=== PATIENT | male | born 1995 | race Caucasian/White ===

== ENCOUNTER 2019-02-09 22:07 | Emergency (ER) | payer OTHER ==
[~2019-02-09] VITALS: Ht 172.7 cm; Wt 113.6 kg
[2019-02-09 22:07] VITALS: BP 154/82
[2019-02-09] MEDS ORDERED: DOXY-350 PO (22:23)
== END 2019-02-09 23:49 | disposition home or self-care (01) ==
LOC: M ED 22:07
DX: L03.311 Cellulitis of abdominal wall (principal); Z79.2 Long term (current) use of antibiotics

== ENCOUNTER → 2019-02-09 | Outpatient (REF) | payer OTHER ==
[~2019-02-09] MED LIST: DOXY-350 PO
== END ==
LOC: M LAB REF 17:33
PROVIDERS: ATTEND Nurse Practitioner Family
DX: L02.91 Cutaneous abscess, unspecified (principal)